=== PATIENT | female | born 1980 | race Caucasian/White ===

== ENCOUNTER 2017-03-15 08:31 | Emergency (ER) | payer OTHER ==
[2017-03-15 08:48] VITALS: BP 110/68; PULSE 63; TEMP 98.2; BMI 25.8
--- NOTE | 2017-03-15 09:00 | PDOC ---
History of Present Illness - General Chief Complaint: Urinary Problem Stated Complaint: EMPLOYEE, POSSIBLE UTI Time Seen by Provider: 03/15/17 08:59 - History of Present Illness Initial Comments: 03/15/17 08:59 The patient is a year old female, with a significant past medical history of, who presents to the emergency department with The patient denies chest pain, shortness of breath, headache and dizziness. Denies fever, chills, nausea, vomit, diarrhea and constipation. Denies dysuria, frequency, urgency and hematuria. Allergies: Past surgical history: Social history: PMD - Past History - Past Medical History Allergies/Adverse Reactions: Allergies Allergy/AdvReac Type Severity Reaction Status Date / Time No Known Allergies Allergy Verified 03/15/17 08:45 Home Medications: Ambulatory Orders Tobramycin 0.3% Ophth Soln [Tobrex Ophthalmic Solution -] 2 drop OU Q6HPO #1 drops 03/17/15 Other medical history: Denies - Immunization History Immunization Up to Date: Yes - Suicide/Smoking/Psychosocial Hx Smoking History: Never smoked Have you smoked in the past 12 months: No Information on smoking cessation initiated: No Hx Alcohol Use: No Drug/Substance Use Hx: No Substance Use Type: None Review of Systems - Review of Systems Comments:: 03/15/17 09:00 GENERAL/CONSTITUTIONAL: No fever or chills. No weakness. HEAD, EYES, EARS, NOSE AND THROAT: No change in vision. No ear pain or discharge. No sore throat. CARDIOVASCULAR: No chest pain or shortness of breath RESPIRATORY: No cough, wheezing, or hemoptysis. GASTROINTESTINAL: No nausea, vomiting, diarrhea or constipation. GENITOURINARY: No dysuria, frequency, or change in urination. MUSCULOSKELETAL: No joint or muscle swelling or pain. No neck or back pain. SKIN: No rash NEUROLOGIC: No headache, vertigo, loss of consciousness, or change in strength/ sensation. ENDOCRINE: No increased thirst. No abnormal weight change HEMATOLOGIC/LYMPHATIC: No anemia, easy bleeding, or history of blood clots. ALLERGIC/IMMUNOLOGIC: No hives or skin allergy. *Physical Exam - Vital Signs Last Vital Signs Temp Pulse Resp BP Pulse Ox 98.2 F 63 14 110/68 99 03/15/17 08:45 03/15/17 08:45 03/15/17 08:45 03/15/17 08:45 03/15/17 08:45 - Physical Exam Comments: 03/15/17 09:00 GENERAL: Awake, alert, and fully oriented, in no acute distress HEAD: No signs of trauma, normocephalic, atraumatic EYES: PERRLA, EOMI, sclera anicteric, conjunctiva clear ENT: Auricles normal inspection, hearing grossly normal, nares patent, oropharynx clear without exudates. Moist mucosa NECK: Normal ROM, supple, no lymphadenopathy, JVD, or masses LUNGS: No distress, speaks full sentences, clear to auscultation bilaterally HEART: Regular rate and rhythm, normal S1 and S2, no murmurs, rubs or gallops, peripheral pulses normal and equal bilaterally. ABDOMEN: Soft, nontender, normoactive bowel sounds. No guarding, no rebound. No masses EXTREMITIES: Normal inspection, Normal range of motion, no edema. No clubbing or cyanosis. NEUROLOGICAL: Cranial nerves II through XII grossly intact. Normal speech, normal gait, no focal sensorimotor deficits SKIN: Warm, Dry, normal turgor, no rashes or lesions noted.
[2017-03-15 09:58] LABS: URINE APPEARANCE SLCLOUDY; URINE BILIRUBIN NEGATIVE (NEGATIVE); URINE BLOOD 2+ (NEGATIVE); URINE COLOR YELLOW; URINE GLUCOSE (UA) NEGATIVE (NEGATIVE); URINE KETONE NEGATIVE (NEGATIVE); URINE NITRITE NEGATIVE (NEGATIVE); URINE PROTEIN NEGATIVE (NEGATIVE); URINE UROBILINOGEN NEGATIVE mg/dL (0.2-1.0)
[2017-03-15 10:00] LABS: URINE LEUK ESTERASE 2+ (NEGATIVE)
[2017-03-15 10:01] LABS: URINE BACTERIA RARE /hpf (NONE SEEN); URINE MUCUS RARE; URINE RBC 48 /hpf (0-3); URINE WBC 219 /hpf (3-5)
--- NOTE | 2017-03-15 10:04 | PDOC ---
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 Patient denies any chills fever nausea vomiting or any CVA tenderness. Timing/Duration: getting worse Severity: mild Associated Symptoms: reports: other (urgency, frequency and dysurai X 2 days ) Past History - Past Medical History Allergies/Adverse Reactions: Allergies Allergy/AdvReac Type Severity Reaction Status Date / Time No Known Allergies Allergy Verified 03/15/17 08:45 Home Medications: Ambulatory Orders Cephalexin Monohydrate [Keflex -] 500 mg PO BID #13 capsule 03/15/17 Phenazopyridine HCl [Pyridium] 200 mg PO TID #5 tablet 03/15/17 Other medical history: Denies - Immunization History Immunization Up to Date: Yes - Suicide/Smoking/Psychosocial Hx Smoking History: Never smoked Have you smoked in the past 12 months: No Information on smoking cessation initiated: No Hx Alcohol Use: No Drug/Substance Use Hx: No Substance Use Type: None Review of Systems - Review of Systems Able to Perform ROS?: Yes Constitutional: No: Symptoms Reported HEENTM: No: Symptoms Reported Respiratory: No: Symptoms reported Cardiac (ROS): No: Symptoms Reported ABD/GI: No: Symptoms Reported : Yes: Dysuria, Frequency, Urgency. No: Flank Pain, Hematuria, Incontinence Musculoskeletal: No: Symptoms Reported Integumentary: No: Symptoms Reported Neurological: No: Symptoms reported *Physical Exam - Vital Signs Last Vital Signs Temp Pulse Resp BP Pulse Ox 98.2 F 63 14 110/68 99 03/15/17 08:45 03/15/17 08:45 03/15/17 08:45 03/15/17 08:45 03/15/17 08:45 - Physical Exam General Appearance: Yes: Appropriately Dressed Respiratory/Chest: positive: Lungs Clear, Normal Breath Sounds. negative: Chest Tender, Respiratory Distress Cardiovascular: positive: Regular Rhythm, Regular Rate, S1, S2 Gastrointestinal/Abdominal: positive: Normal Bowel Sounds, Soft. negative: Tender, Organomegaly, Distended, Guarding, Rebound, Tenderness, Hepatomegaly, Spleenomegaly Musculoskeletal: positive: Normal Inspection. negative: CVA Tenderness, CVA Tenderness (R), CVA Tenderness (L) Integumentary: positive: Normal Color Neurologic: positive: Alert, Normal Response Medical Decision Making - Medical Decision Making 03/15/17 10:18 Patient is a 36 year old female with no significant medical history here today complaining of having urinary frequency urgency and dysuria 2 days. Patient denies any chills fever nausea vomiting or any CVA tenderness. PLAN: u/a urine C & S rapid urine HCG negative 03/15/17 10:34 03/15/17 10:35 *DC/Admit/Observation/Transfer Diagnosis at time of Disposition: Cystitis - Discharge Dispostion Disposition: HOME Condition at time of disposition: Stable - Prescriptions Prescriptions: Cephalexin Monohydrate [Keflex -] 500 mg PO BID #13 capsule Phenazopyridine HCl [Pyridium] 200 mg PO TID #5 tablet - Patient Instructions Additional Instructions: Drink a lot a fluids especially cranberry juice Return to emergency room if symptoms worsen or new symptoms develop especially if any nausea vomiting or fever or chills Follow-up with your primary care provider for repeat urine testing at end of treatment Patient voiced understanding of discharge instructions and all questions were answered
[2017-03-15] MEDS ORDERED: PHENAZOPYRIDINE HCL 100 MG TABLET (FP) PO ONE (10:30)
[2017-03-15] MEDS ORDERED: CEPHALEXIN MONOHYDRATE 500 MG CAPSULE (UD) PO ONE (10:30)
[2017-03-15] MEDS ORDERED: PHENAZOPYRIDINE HCL 100 MG TABLET (FP) ONE (10:33)
[2017-03-15] MEDS ORDERED: CEPHALEXIN MONOHYDRATE 500 MG CAPSULE (UD) ONE (10:34)
== END 2017-03-15 10:38 | disposition home or self-care (01) ==
LOC: JER 08:31 → JERFT 08:31
DX: N30.90 Cystitis, unspecified without hematuria (principal)
CPT/HCPCS: 81003; 81015; 84703; 87086; 87186; 99281-25

== ENCOUNTER 2020-05-30 18:57 | Emergency (ER) | payer OTHER ==
[2020-05-30 19:01] VITALS: BP 100/63; PULSE 70; TEMP 98.2; BMI 26.2
[2020-05-30 19:52] LABS: PH,URINE 7.5 (5.0-8.0); URINE APPEARANCE CLEAR; URINE BILIRUBIN NEGATIVE (NEGATIVE); URINE COLOR YELLOW; URINE GLUCOSE (UA) NEGATIVE (NEGATIVE); URINE KETONE NEGATIVE (NEGATIVE); URINE LEUK ESTERASE NEGATIVE (NEGATIVE); URINE NITRITE NEGATIVE (NEGATIVE); URINE PROTEIN NEGATIVE (NEGATIVE)
[2020-05-30 19:54] LABS: HCG,QUALITATIVE URINE Negative
== END 2020-05-30 20:37 | disposition home or self-care (01) ==
LOC: JERFT 18:57
DX: R10.31 Right lower quadrant pain (principal)
CPT/HCPCS: 76830-TC; 81003; 84703; 87086; 99284-25

== ENCOUNTER 2021-01-08 09:34 | Emergency (ER) | payer OTHER | END 2021-01-08 09:51 | disposition home or self-care (01) | LOC: JVIRT 09:34 | DX: Z11.52 Encounter for screening for COVID-19 (principal) | CPT/HCPCS: C9803; Q3014-GT; U0003; U0005 ==

== ENCOUNTER 2021-04-04 21:48 | Emergency (ER) | payer BC, OTHER ==
[2021-04-04] MEDS ORDERED: PHENAZOPYRIDINE HCL 100 MG TABLET (FP) PO ONE (21:59)
[2021-04-04] MEDS ORDERED: CEPHALEXIN MONOHYDRATE 500 MG CAPSULE (UD) PO ONE (21:59)
[2021-04-04] MEDS ORDERED: PHENAZOPYRIDINE HCL 100 MG TABLET (FP) ONE (22:02)
[2021-04-04 22:03] VITALS: BP 126/79; PULSE 79; TEMP 97.9; BMI 27.2
[2021-04-04] MEDS ORDERED: CEPHALEXIN MONOHYDRATE 500 MG CAPSULE (UD) ONE (22:04)
[2021-04-04 22:14] LABS: EPI CELLS 22 /uL (0-25.1); HYALINE CASTS 1 /uL (0-3.1); URINE APPEARANCE CLOUDY; URINE BILIRUBIN NEGATIVE (NEGATIVE); URINE COLOR YELLOW; URINE GLUCOSE (UA) NEGATIVE (NEGATIVE); URINE KETONE NEGATIVE (NEGATIVE); URINE LEUK ESTERASE 2+ (NEGATIVE); URINE NITRITE POSITIVE (NEGATIVE); URINE PROTEIN 3+ (NEGATIVE); URINE RBC 2050 /uL (0-23.9); URINE WBC 2041 /uL (0-25.8)
== END 2021-04-04 22:58 | disposition home or self-care (01) ==
LOC: JERFT 21:48 → JER 21:48 → JERFT 22:58
DX: N39.0 Urinary tract infection, site not specified (principal)
CPT/HCPCS: 81003; 87086; 87186; 99283-25

== ENCOUNTER 2021-04-25 18:05 | Emergency (ER) | payer BC ==
[2021-04-25 18:24] VITALS: BP 100/64; PULSE 72; TEMP 98.9; BMI 27.3
== END 2021-04-25 19:18 | disposition home or self-care (01) ==
LOC: JER 18:05
DX: J06.9 Acute upper respiratory infection, unspecified (principal)
CPT/HCPCS: 99283-25; C9803; U0003; U0005

== ENCOUNTER 2021-06-10 19:18 | Emergency (ER) | payer BC ==
[2021-06-10 19:23] VITALS: BP 138/78; PULSE 89; TEMP 98.3; BMI 26.6
== END 2021-06-10 22:29 | disposition home or self-care (01) ==
LOC: JER 19:18
DX: U07.1 COVID-19 (principal); R05.9 Cough, unspecified
CPT/HCPCS: 71046-TC-FY; 99284-25; C9803; U0003; U0005

== ENCOUNTER 2021-06-16 19:54 | Emergency (ER) | payer BC | END 2021-06-16 21:05 | disposition home or self-care (01) | LOC: JVIRT 19:54 | DX: Z20.822 Contact with and (suspected) exposure to COVID-19 (principal) | CPT/HCPCS: C9803; Q3014-GT; U0003; U0005 ==

== ENCOUNTER 2021-08-29 12:15 | Emergency (ER) | payer BC ==
[2021-08-29 12:22] VITALS: BP 125/76; PULSE 75; TEMP 97.9; BMI 26.6
[2021-08-29 12:58] LABS: BASO % 0.6 % (0-2.0); EOS % 1.1 % (0-4.5); HEMATOCRIT 36.8 % (32.4-45.2); HEMOGLOBIN 12.7 GM/dL (10.7-15.3); LYMPH % 20.6 % (8-40); MCH 31.7 pg (25.7-33.7); MCHC 34.5 g/dl (32.0-36.0); MEAN CELL VOLUME 91.9 fl (80-96); MEAN PLT VOLUME 9.7 fl (7.5-11.1); MONO % 6.7 % (3.8-10.2); PLATELET COUNT 185 10^3/uL (134-434); RBC 4.01 M/mm3 (3.60-5.2); RDW 13.7 % (11.6-15.6); WHITE BLOOD COUNT 9.7 K/mm3 (4.0-10.0)
[2021-08-29 13:21] LABS: CALCIUM 9.3 mg/dL (8.5-10.1)
[2021-08-29 13:22] LABS: BLOOD UREA NITROGEN 19.3 mg/dL (7-18)
[2021-08-29 13:25] LABS: CREATININE 0.7 mg/dL (0.55-1.3)
== END 2021-08-29 16:15 | disposition home or self-care (01) ==
LOC: JER 12:15
DX: O20.9 Hemorrhage in early pregnancy, unspecified (principal); O26.891 Other specified pregnancy related conditions, first trimester; R10.2 Pelvic and perineal pain; Z3A.01 Less than 8 weeks gestation of pregnancy
CPT/HCPCS: 36415; 76817-TC; 80048; 84702; 85025; 99284-25

== ENCOUNTER → 2021-12-03 | Emergency (ER) | payer BC | END | disposition home or self-care (01) | LOC: JVIRT 14:41 | DX: R51.9 Headache, unspecified (principal); Z20.822 Contact with and (suspected) exposure to COVID-19 | CPT/HCPCS: 99283-25; C9803-CS; U0003; U0005 ==

== ENCOUNTER 2021-12-09 17:30 | Emergency (ER) | payer BC | END 2021-12-09 18:00 | disposition home or self-care (01) | LOC: JVIRT 17:30 | DX: R51.9 Headache, unspecified (principal); Z20.822 Contact with and (suspected) exposure to COVID-19 | CPT/HCPCS: 0241U-QW; Q3014-GT ==

== ENCOUNTER 2022-04-14 13:30 | Inpatient (IN) | payer BC ==
[2022-04-14 14:26] VITALS: BMI 34.2
[2022-04-14] MEDS: ELECTROLYTE-148 SOLN 1,000 ML IV SCH (14:45)
[2022-04-14] MEDS ORDERED: DINOPROSTONE 10 MG VAGINAL SUPPOSITORY VG ONE (14:57)
[2022-04-14 15:08] LABS: BASO % 0.5 % (0-2.0); EOS % 1.4 % (0-4.5); HEMATOCRIT 33.5 % (32.4-45.2); HEMOGLOBIN 11.6 GM/dL (10.7-15.3); LYMPH % 14.4 % (8-40); MCH 31.9 pg (25.7-33.7); MCHC 34.5 g/dl (32.0-36.0); MEAN CELL VOLUME 92.3 fl (80-96); MEAN PLT VOLUME 9.8 fl (7.5-11.1); MONO % 3.8 % (3.8-10.2); NEUT % 79.9 % (42.8-82.8); PLATELET COUNT 214 10^3/uL (134-434); RBC 3.63 M/mm3 (3.60-5.2); RDW 13.3 % (11.6-15.6); WHITE BLOOD COUNT 8.4 K/mm3 (4.0-10.0)
[2022-04-14 15:11] LABS: INR 0.93 (0.83-1.09); PROTHROMBIN TIME (PATIENT) 10.7 SEC (9.7-13.0)
[2022-04-14 15:14] LABS: ACTIVATED PTT 27.8 SECONDS (25.2-36.5)
[2022-04-14 15:32] LABS: BLOOD UREA NITROGEN 19.2 mg/dL (7-18); CALCIUM 8.9 mg/dL (8.5-10.1)
[2022-04-14 15:36] LABS: CREATININE 0.8 mg/dL (0.55-1.3)
[2022-04-14] MEDS ORDERED: ACETAMINOPHEN 325 MG TABLET (FP) ONE (17:14)
[2022-04-14] MEDS ORDERED: ACETAMINOPHEN 325 MG TABLET (FP) PO ONE (17:15)
[2022-04-15] MEDS: ELECTROLYTE-148 SOLN 1,000 ML IV SCH (01:32)
[2022-04-15] MEDS ORDERED: OXYTOCIN 30 UNITS in 0.9% NS 30 UNIT/500 ML INFUS.BAG IVPB SCH (05:10)
[2022-04-15] MEDS ORDERED: OXYTOCIN 30 UNITS in 0.9% NS 30 UNIT/500 ML INFUS.BAG IVPB ONE (05:50)
[2022-04-15] MEDS ORDERED: BUTORPHANOL TARTRATE 1 MG/ML VIAL IVPB ONE (06:40)
[2022-04-15] MEDS ORDERED: PROMETHAZINE HCL 25 MG/1 ML VIAL IVPB ONE (06:40)
[2022-04-15] MEDS ORDERED: AMPICILLIN - 2 GM in SODIUM CHLORIDE 100 ML IVPB ONE (06:58)
[2022-04-15] MEDS ORDERED: ELECTROLYTE-148 SOLN 1,000 ML IV SCH (07:00)
[2022-04-15] MEDS ORDERED: FENTANYL/BUPIVACAINE/NS/PF - PCEA - 50 ML DISP.SYRIN EP ONE ×2 (07:03→10:46)
[2022-04-15] MEDS ORDERED: AMPICILLIN SODIUM 2 GM VIAL ONE (07:36)
[2022-04-15] MEDS ORDERED: NALOXONE HCL 0.4 MG/ML VIAL IVPUSH PRN (08:22)
[2022-04-15] MEDS ORDERED: FENTANYL/BUPIVACAINE/NS/PF - PCEA - 50 ML DISP.SYRIN EP SCH (08:30)
[2022-04-15] MEDS ORDERED: AMPICILLIN SODIUM 1 GM VIAL ONE (11:01)
[2022-04-15] MEDS: AMPICILLIN - 1 GM in SODIUM CHLORIDE 100 ML IVPB SCH ×2 (11:05→18:09)
[2022-04-15] MEDS ORDERED: OXYTOCIN 20 UNITS in 0.9% NS 20 UNIT/1,000 ML INFUS.BAG IV ONE (11:53)
[2022-04-15] MEDS ORDERED: LIDOCAINE HCL 1% PRESERVATIVE FREE - 30ML VIAL ONE (12:06)
[2022-04-15] MEDS ORDERED: BISACODYL 10 MG SUPP.RECT RC PRN (12:25)
[2022-04-15] MEDS ORDERED: WITCH HAZEL 50% (TUCKS) 40 PAD/JAR PAD TP PRN (12:25)
[2022-04-15] MEDS ORDERED: BENZOCAINE 20% 57 GM BOTTLE TP PRN (12:25)
[2022-04-15] MEDS ORDERED: ACETAMINOPHEN 325 MG TABLET (FP) PO PRN (12:25)
[2022-04-15] MEDS ORDERED: oxyCODONE HCL 5 MG TABLET PO PRN (12:25)
[2022-04-15] MEDS ORDERED: BENZOCAINE 28 GM HEMORRHOIDAL OINTMENT TP PRN (12:25)
[2022-04-15] MEDS ORDERED: METHYLERGONOVINE MALEATE 0.2 MG/1 ML AMP IM PRN (12:25)
[2022-04-15] MEDS ORDERED: OXYTOCIN 20 UNITS in 0.9% NS 20 UNIT/1,000 ML INFUS.BAG IV SCH (12:30)
[2022-04-15] MEDS ORDERED: ONDANSETRON 4 MG/2 ML VIAL ONE (12:44)
[2022-04-15] MEDS ORDERED: ONDANSETRON 4 MG/2 ML VIAL IVPB PRN (12:46)
[2022-04-15 13:00] LABS: CORD HCO3 22.5 mmHg (20-29); CORD PCO2 74.8 mmHg (30-78); CORD pH 7.096 (7.14-7.44)
[2022-04-15 13:02] LABS: CORD BASE EXCESS -8.8 mmol/L (0-2); CORD HCO3 20.5 mmHg (20-29); CORD PCO2 56.3 mmHg (30-78); CORD pH 7.18 (7.14-7.44)
[2022-04-15] MEDS: IBUPROFEN 600 MG TABLET (FP) PO PRN (15:55)
[2022-04-16] MEDS: IBUPROFEN 600 MG TABLET (FP) PO PRN ×3 (02:23→21:31)
[2022-04-16 08:08] LABS: BASO % 0.6 % (0-2.0); EOS % 0.9 % (0-4.5); HEMOGLOBIN 10.9 GM/dL (10.7-15.3); LYMPH % 12.5 % (8-40); MCH 31.6 pg (25.7-33.7); MEAN CELL VOLUME 92.7 fl (80-96); MEAN PLT VOLUME 10.3 fl (7.5-11.1); MONO % 4.4 % (3.8-10.2); NEUT % 81.6 % (42.8-82.8); PLATELET COUNT 194 10^3/uL (134-434); RBC 3.46 M/mm3 (3.60-5.2); RDW 13.4 % (11.6-15.6); WHITE BLOOD COUNT 11.6 K/mm3 (4.0-10.0)
[2022-04-16] MEDS ORDERED: SENNOSIDES/DOCUSATE COMBO (SENNA PLUS) TABLET (UD) PO PRN (22:00)
[2022-04-17] MEDS: IBUPROFEN 600 MG TABLET (FP) PO PRN (08:47)
[2022-04-17 09:24] VITALS: TEMP 98.8
[2022-04-17 09:25] VITALS: BP 132/72; PULSE 83; RESP 16
== END 2022-04-17 13:00 | disposition home or self-care (01) | DRG 806 ==
LOC: JLDR 13:30 → J3W 04-15 14:29
PROVIDERS: ADMIT Obstetrics & Gynecology; ATTEND Obstetrics & Gynecology
PROC: 3E0P7VZ Introduction of Hormone into Female Reproductive, Via Natural or Artificial Opening (ICD-10-PCS; 2022-04-14)
PROC: 3E033VJ Introduction of Other Hormone into Peripheral Vein, Percutaneous Approach (ICD-10-PCS; 2022-04-14)
PROC: 10D07Z6 Extraction of Products of Conception, Vacuum, Via Natural or Artificial Opening (ICD-10-PCS; principal; 2022-04-15)
DX: O76 Abnormality in fetal heart rate and rhythm complicating labor and delivery (principal); O41.03X0 Oligohydramnios, third trimester, not applicable or unspecified; Z37.0 Single live birth; O99.824 Streptococcus B carrier state complicating childbirth; Z3A.39 39 weeks gestation of pregnancy
CPT/HCPCS: 36415; 36600; 59409; 80048; 82803; 85025; 85610; 85730; 86780; 86850; 86900; 86901; C9803-CS; U0003; U0005

== ENCOUNTER 2022-06-15 17:17 | Emergency (ER) | payer BC ==
[2022-06-15] MEDS ORDERED: DEXAMETHASONE 4 MG TABLET (FP) PO STA (17:22)
[2022-06-15 17:39] VITALS: BP 98/62; PULSE 76; RESP 18; TEMP 98; BMI 29.1
[2022-06-15] MEDS ORDERED: DEXAMETHASONE SOD PHOSPHATE 10 MG/1 ML VIAL ONE (17:40)
[2022-06-15 18:56] LABS: THROAT:GRP A STREP NOT DETECTED (NOTDETECTED)
== END 2022-06-15 17:46 | disposition home or self-care (01) ==
LOC: JER 17:17 → JERFT 17:17
DX: J02.9 Acute pharyngitis, unspecified (principal)
CPT/HCPCS: 0241U-QW; 87651; 99283-25

== ENCOUNTER 2022-07-14 13:06 | Emergency (ER) | payer BC ==
[2022-07-14 13:09] VITALS: BP 98/64; PULSE 52; RESP 18; TEMP 97.9; BMI 28.1
[2022-07-14 13:38] LABS: EPI CELLS >36 /uL (0-25.1); HYALINE CASTS 1 /uL (0-3.1); PH,URINE 5.5 (5.0-8.0); URINE APPEARANCE CLEAR; URINE BACTERIA >9,000 /uL (0-1359); URINE BILIRUBIN NEGATIVE (NEGATIVE); URINE COLOR YELLOW; URINE GLUCOSE (UA) NEGATIVE (NEGATIVE); URINE KETONE NEGATIVE (NEGATIVE); URINE LEUK ESTERASE 1+ (NEGATIVE); URINE NITRITE POSITIVE (NEGATIVE); URINE PROTEIN NEGATIVE (NEGATIVE); URINE RBC 21 /uL (0-23.9); URINE UROBILINOGEN 0.2 mg/dL (0.2-1.0); URINE WBC 267 /uL (0-25.8)
== END 2022-07-14 15:11 | disposition home or self-care (01) ==
LOC: JERFT 13:06
DX: N30.00 Acute cystitis without hematuria (principal)
CPT/HCPCS: 81003; 84703; 87086; 87186; 99283-25

== ENCOUNTER 2023-07-11 08:15 | Inpatient (IN) | payer BC ==
[2023-07-11] MEDS ORDERED: OXYTOCIN 30 UNITS in 0.9% NS 30 UNIT/500 ML INFUS.BAG IVPB SCH (09:45)
[2023-07-11] MEDS ORDERED: AMPICILLIN - 2 GM in SODIUM CHLORIDE 100 ML IVPB ONE (09:56)
[2023-07-11] MEDS ORDERED: ELECTROLYTE-148 SOLN 1,000 ML IV SCH (10:00)
[2023-07-11] MEDS ORDERED: AMPICILLIN SODIUM 2 GM VIAL ONE (10:18)
[2023-07-11] MEDS ORDERED: OXYTOCIN 30 UNITS in 0.9% NS 30 UNIT/500 ML INFUS.BAG IVPB ONE (10:18)
[2023-07-11 10:38] VITALS: BMI 33.6
[2023-07-11 11:12] LABS: BASO % 0.4 % (0-2.0); EOS % 0.8 % (0-4.5); HEMATOCRIT 30.4 % (32.4-45.2); HEMOGLOBIN 10.6 GM/dL (10.7-15.3); MCH 31.5 pg (25.7-33.7); MCHC 34.8 g/dl (32.0-36.0); MEAN CELL VOLUME 90.4 fl (80-96); MEAN PLT VOLUME 9.7 fl (7.5-11.1); MONO % 6.4 % (3.8-10.2); NEUT % 75.4 % (42.8-82.8); PLATELET COUNT 190 10^3/uL (134-434); RBC 3.37 M/mm3 (3.60-5.2); RDW 14.5 % (11.6-15.6); WHITE BLOOD COUNT 7.4 K/mm3 (4.0-10.0)
[2023-07-11 11:18] LABS: INR 0.97 (0.83-1.09); PROTHROMBIN TIME (PATIENT) 11.3 SEC (9.7-13.0)
[2023-07-11 11:21] LABS: ACTIVATED PTT 27.2 SECONDS (25.2-36.5)
[2023-07-11 11:26] LABS: POTASSIUM 4.1 mmol/L (3.5-5.1)
[2023-07-11 11:28] LABS: BLOOD UREA NITROGEN 12.8 mg/dL (7-18); CALCIUM 8.6 mg/dL (8.5-10.1)
[2023-07-11 11:32] LABS: CREATININE 0.6 mg/dL (0.55-1.3)
[2023-07-11] MEDS: AMPICILLIN - 1 GM in SODIUM CHLORIDE 100 ML IVPB SCH ×3 (14:30→22:43)
[2023-07-11] MEDS ORDERED: AMPICILLIN SODIUM 1 GM VIAL ONE ×2 (14:36→18:18)
[2023-07-11] MEDS ORDERED: FENTANYL/BUPIVACAINE/NS/PF - PCEA - 50 ML DISP.SYRIN EP ONE (14:56)
[2023-07-11] MEDS ORDERED: NALOXONE HCL 0.4 MG/ML VIAL IVPUSH PRN (15:28)
[2023-07-11] MEDS ORDERED: FENTANYL/BUPIVACAINE/NS/PF - PCEA - 50 ML DISP.SYRIN EP SCH (15:30)
[2023-07-11] MEDS ORDERED: BUPIVACAINE HCL/PF 0.25% (2.5MG/ML) 10 ML VIAL ONE ×2 (16:05→18:54)
[2023-07-11] MEDS ORDERED: LIDOCAINE HCL 1% PRESERVATIVE FREE - 30ML VIAL ONE (16:56)
[2023-07-11] MEDS ORDERED: OXYTOCIN 20 UNITS in 0.9% NS 20 UNIT/1,000 ML INFUS.BAG IV ONE (16:56)
[2023-07-11] MEDS ORDERED: FENTANYL CITRATE/PF 50 MCG/ML VIAL ONE (18:54)
[2023-07-11] MEDS ORDERED: WITCH HAZEL 50% (TUCKS) 40 PAD/JAR PAD TP PRN (20:20)
[2023-07-11] MEDS ORDERED: BENZOCAINE 28 GM HEMORRHOIDAL OINTMENT TP PRN (20:20)
[2023-07-11] MEDS ORDERED: BISACODYL 10 MG SUPP.RECT RC PRN (20:20)
[2023-07-11] MEDS ORDERED: ACETAMINOPHEN 325 MG TABLET (FP) PO PRN (20:20)
[2023-07-11] MEDS ORDERED: BENZOCAINE 20% 57 GM BOTTLE TP PRN (20:20)
[2023-07-11] MEDS ORDERED: METHYLERGONOVINE MALEATE 0.2 MG/1 ML AMP IM PRN (20:20)
[2023-07-11] MEDS ORDERED: OXYTOCIN 20 UNITS in 0.9% NS 20 UNIT/1,000 ML INFUS.BAG IV SCH (20:30)
[2023-07-11 20:53] LABS: CORD BASE EXCESS -8.2 mmol/L (0-2); CORD HCO3 21.2 mmHg (20-29); CORD PCO2 59.3 mmHg (30-78); CORD pH 7.172 (7.14-7.44)
[2023-07-11 20:55] LABS: CORD BASE EXCESS -6.2 mmol/L (0-2); CORD HCO3 18.5 mmHg (20-29); CORD PCO2 34.7 mmHg (30-78); CORD pH 7.345 (7.14-7.44)
[2023-07-11] MEDS ORDERED: ONDANSETRON 4 MG/2 ML VIAL ONE (21:54)
[2023-07-11] MEDS ORDERED: ONDANSETRON 4 MG/2 ML VIAL IVPB ONE (22:15)
[2023-07-11] MEDS ORDERED: oxyCODONE HCL 5 MG TABLET ONE (23:10)
[2023-07-11] MEDS: oxyCODONE HCL 5 MG TABLET PO PRN (23:12)
[2023-07-12] MEDS: AMPICILLIN - 1 GM in SODIUM CHLORIDE 100 ML IVPB SCH (04:38)
[2023-07-12] MEDS: IBUPROFEN 600 MG TABLET (FP) PO PRN ×3 (05:40→22:22)
[2023-07-12] MEDS: oxyCODONE HCL 5 MG TABLET PO PRN (07:57)
[2023-07-12 08:38] LABS: BASO % 0.5 % (0-2.0); EOS % 0.3 % (0-4.5); HEMATOCRIT 29.3 % (32.4-45.2); HEMOGLOBIN 9.8 GM/dL (10.7-15.3); LYMPH % 10.6 % (8-40); MCH 30.3 pg (25.7-33.7); MCHC 33.5 g/dl (32.0-36.0); MEAN CELL VOLUME 90.5 fl (80-96); MEAN PLT VOLUME 10.5 fl (7.5-11.1); MONO % 7.6 % (3.8-10.2); PLATELET COUNT 193 10^3/uL (134-434); RBC 3.24 M/mm3 (3.60-5.2); RDW 14.4 % (11.6-15.6); WHITE BLOOD COUNT 12.4 K/mm3 (4.0-10.0)
[2023-07-12] MEDS: PRENATAL VITAMINS W/ FOLIC ACID TABLET (FP) PO SCH (10:09)
[2023-07-12 21:57] VITALS: RESP 18
[2023-07-12] MEDS ORDERED: SENNOSIDES/DOCUSATE COMBO (SENNA PLUS) TABLET (UD) PO PRN (22:00)
[2023-07-13 08:31] VITALS: BP 125/75; PULSE 75; TEMP 98.5
[2023-07-13] MEDS: PRENATAL VITAMINS W/ FOLIC ACID TABLET (FP) PO SCH (09:24)
[2023-07-13] MEDS ORDERED: SIMETHICONE 80 MG TAB.CHEW (FP) PO PRN (11:13)
[2023-07-13] MEDS: IBUPROFEN 600 MG TABLET (FP) PO PRN (11:19)
== END 2023-07-13 15:00 | disposition home or self-care (01) | DRG 807 ==
LOC: JLDR 08:15 → J3W 07-12 00:25
PROVIDERS: ADMIT Obstetrics & Gynecology; ATTEND Obstetrics & Gynecology
PROC: 10E0XZZ Delivery of Products of Conception, External Approach (ICD-10-PCS; principal; 2023-07-11)
DX: O24.425 Gestational diabetes mellitus in childbirth, controlled by oral hypoglycemic drugs (principal); Z37.0 Single live birth; Z3A.39 39 weeks gestation of pregnancy
CPT/HCPCS: 36415; 36600; 80048; 82803; 82962; 85025; 85610; 85730; 86780; 86850; 86900; 86901

== ENCOUNTER 2023-12-12 07:05 | Emergency (ER) | payer BC ==
[2023-12-12 07:15] VITALS: BP 123/74; PULSE 77; RESP 18; TEMP 98.3; BMI 29.0
[2023-12-12] MEDS ORDERED: ACETAMINOPHEN INJECTION 100 ML IVPB ONE (07:25)
[2023-12-12] MEDS ORDERED: ONDANSETRON 4 MG/2 ML VIAL ONE (07:25)
[2023-12-12] MEDS: ACETAMINOPHEN 1000 MG/100 ML BAG IVPB ONE (07:30)
[2023-12-12] MEDS: LACTATED RINGERS SOLUTION 1000 ML INFUS.BAG IV ONE ×2 (07:30→09:01)
[2023-12-12] MEDS: ONDANSETRON 4 MG/2 ML VIAL IVPUSH ONE (07:30)
[2023-12-12] MEDS: FAMOTIDINE 20 MG/50 ML IVPB 20 MG/50 ML MG IVPB ONE (07:40)
[2023-12-12] MEDS ORDERED: FAMOTIDINE 20 MG/50 ML IVPB 20 MG/50 ML MG IVPB ONE (07:42)
[2023-12-12 07:59] LABS: BASO % 0.1 % (0-2.0); EOS % 2.1 % (0-4.5); HEMATOCRIT 45.8 % (32.4-45.2); HEMOGLOBIN 15.4 GM/dL (10.7-15.3); LYMPH % 15.7 % (8-40); MCH 30.2 pg (25.7-33.7); MCHC 33.6 g/dl (32.0-36.0); MEAN CELL VOLUME 89.9 fl (80-96); MONO % 10.4 % (3.8-10.2); NEUT % 71.7 % (42.8-82.8); PLATELET COUNT 313 10^3/uL (134-434); RBC 5.09 M/mm3 (3.60-5.2); RDW 14.2 % (11.6-15.6); WHITE BLOOD COUNT 7.2 K/mm3 (4.0-10.0)
[2023-12-12 08:02] LABS: POTASSIUM 4.7 mmol/L (3.5-5.1)
[2023-12-12 08:04] LABS: BLOOD UREA NITROGEN 17.2 mg/dL (7-18); CALCIUM 9.3 mg/dL (8.5-10.1)
[2023-12-12 08:08] LABS: CREATININE 0.8 mg/dL (0.55-1.3)
[2023-12-12 08:09] LABS: BILIRUBIN,TOTAL 0.7 mg/dL (0.2-1)
[2023-12-12] MEDS: LOPERAMIDE HCL 2 MG CAPSULE PO ONE (09:05)
[2023-12-12] MEDS ORDERED: LOPERAMIDE HCL 2 MG CAPSULE ONE (09:07)
== END 2023-12-12 09:47 | disposition home or self-care (01) ==
LOC: JER 07:05
PROC: 3E033GC Introduction of Other Therapeutic Substance into Peripheral Vein, Percutaneous Approach (ICD-10-PCS; principal; 2023-12-12)
PROC: 3E033GC Introduction of Other Therapeutic Substance into Peripheral Vein, Percutaneous Approach (ICD-10-PCS; 2023-12-12)
PROC: 3E033NZ Introduction of Analgesics, Hypnotics, Sedatives into Peripheral Vein, Percutaneous Approach (ICD-10-PCS; 2023-12-12)
DX: R11.2 Nausea with vomiting, unspecified (principal); R19.7 Diarrhea, unspecified; R10.9 Unspecified abdominal pain; T38.3X5A Adverse effect of insulin and oral hypoglycemic [antidiabetic] drugs, initial encounter
CPT/HCPCS: 36415; 80053; 83690; 83735; 84703; 85025; 99284-25; J0131